=== PATIENT | female | born 1990 | race Caucasian/White ===

== ENCOUNTER → 2016-05-27 | Outpatient (CLI) | payer BC ==
[~2016-05-27] MED LIST: ACET-749 PO; MTR600X PO; PRENTAB26 PO
--- NOTE | 2016-05-27 18:50 | DIAGNOSTIC IMAGING REPORT ---
THYROID ULTRASOUND CLINICAL HISTORY: Multinodular thyroid. Cervical pain. COMPARISON STUDY: Thyroid ultrasounds November 18, 2015 and December 28, 2015. TECHNIQUE: Sonography of the thyroid gland was performed. FINDINGS: The right thyroid lobe measures 4.4 x 1.2 x 1.6 cm and the left lobe measures 4.7 x 1.3 x 1.8 cm. Several cystic lesions within the thyroid gland which contain echogenic foci with comet tail artifact are unchanged since exam of November 18, 2015. The largest is a 9 mm lesion within the lower pole of the left lobe. These are consistent with colloid cysts. IMPRESSION: 1. Normal size thyroid gland. 2. No change in multiple cystic lesions within the thyroid gland since prior exams which are consistent with colloid cysts. Electronically signed by: Dorian Villareal M.D. 05/27/2016 6:48 PM Dictated Date/Time: 05/27/2016 6:46 PM
== END | disposition home or self-care (01) ==
LOC: C.ULTR 17:02
PROVIDERS: ATTEND Internal Medicine Endocrinology, Diabetes & Metabolism
DX: M54.2 Cervicalgia (principal); E04.2 Nontoxic multinodular goiter

== ENCOUNTER → 2016-11-11 | Outpatient (CLI) | payer BC | END | disposition home or self-care (01) | LOC: C.PAPS 14:03 | PROVIDERS: ATTEND Physician Assistant | DX: Z01.419 Encounter for gynecological examination (general) (routine) without abnormal findings (principal) ==

== ENCOUNTER → 2017-05-16 | Outpatient (CLI) | payer BC | END | disposition home or self-care (01) | LOC: C.LABPBG 15:25 | PROVIDERS: ATTEND Physician Assistant | DX: N93.9 Abnormal uterine and vaginal bleeding, unspecified (principal) ==

== ENCOUNTER 2017-09-28 12:56 | Emergency (ER) | payer BC ==
[~2017-09-28] VITALS: Ht 152.4 cm; Wt 60.9 kg
[~2017-09-28 12:56] MED LIST changes: -ACET-749 PO; +ACET300T3 PO
[2017-09-28 13:02] VITALS: TEMP 36.9; Ht 152.4 cm; Wt 60.9 kg
[2017-09-28] MEDS ORDERED: NORG1TAB68 PO (13:11)
--- NOTE | 2017-09-28 14:11 | DIAGNOSTIC IMAGING REPORT ---
MAXILLOFACIAL CT WITHOUT CONTRAST CLINICAL HISTORY: Left temporomandibular joint pain. Bilateral temporomandibular joint dislocations. Recent trauma. COMPARISON STUDY: None. TECHNIQUE: A maxillofacial CT was performed without IV contrast. Coronal and sagittal reformats were viewed. A dose lowering technique was utilized adhering to the principles of ALARA. FINDINGS: Visualized portions of the intracranial contents are unremarkable on this unenhanced exam. There is no upper cervical spine fracture. There is no skull base fracture. No mandibular fracture is identified. Alignment of the bilateral temporomandibular joints is anatomic. Moderate leftward deviation of the nasal septum is noted. Small air-fluid levels within the sphenoid sinuses are noted. There is no acute facial fracture. The globes are intact. There is no retrobulbar hematoma. IMPRESSION: 1. No acute facial fracture. No mandibular fracture. Anatomic alignment of the temporomandibular joints. 2. Small sphenoid sinus air-fluid levels which suggests acute sinusitis. Electronically signed by: Dorian Villareal M.D. 09/28/2017 2:09 PM Dictated Date/Time: 09/28/2017 2:05 PM
[2017-09-28] MEDS ORDERED: CYCL10TA6 PO (14:23)
[2017-09-28] MEDS ORDERED: PRED20TA PO (14:23)
--- NOTE | 2017-09-28 14:26 | EMERGENCY ROOM VISIT NOTE ---
ED Visit Note First contact with patient: 13:06 CHIEF COMPLAINT: Jaw pain, headache HISTORY OF PRESENT ILLNESS: This 27-year-old female patient presents to the emergency department, ambulatory, complaining of jaw pain and intermittent headaches for the past 2 months. The patient states in July, she slipped while carrying groceries into her house. She fell face forward, striking her left jaw on a step. She states she has been evaluated twice by an oral surgeon , and has had x-rays performed. She denies any CT scans or other images. She states she was told that she may need an MRI to evaluate the joint more closely , but insurance did not approve the study. The patient has been intermittently taking meloxicam when pain is severe, but has not been experiencing significant relief. She had worsening pain last night, was unable to sleep due to the pain. She did take 1 dose of meloxicam at that time. She has not performed any physical therapy. She has not been on any muscle relaxers. She was told by the surgeon that there was nothing more they could do for her symptoms. REVIEW OF SYSTEMS: A 6 system review of systems was performed with positives and pertinent negatives listed in the history of present illness. All other systems were reviewed and are negative. ALLERGIES: None MEDICATIONS: Ortho Tri-Cyclen, meloxicam PMH: None SOCIAL HISTORY: The patient lives locally with family. She denies drug, alcohol , tobacco use. PHYSICAL EXAM: VITALS: Vitals are noted on the nurse's note and reviewed by myself. Vital signs stable. GENERAL: This is a 27-year-old white female, in no acute distress, nondiaphoretic, well-developed well-nourished. SKIN: The skin was without rashes, erythema, edema, or bruising. There is no tenting of the skin. No obvious swelling or facial swelling. Capillary reflex less than 2 seconds. HEAD: Normocephalic atraumatic. EARS: External auditory canals clear, tympanic membranes pearly gruber without erythema or effusion bilaterally. EYES: Pupils equal round and reactive to light and accommodation. Conjunctivae without injection, sclerae without icterus. Extraocular movements intact. NOSE: Patent, turbinates without inflammation or discharge. No sinus tenderness. MOUTH: Mucous membranes moist. Tonsils are not enlarged. Pharynx without erythema or exudate. Uvula midline. Airway patent. Tongue does not deviate. The patient is able to fully open and close her mouth. There is some TMJ discomfort. There is some popping and clicking in the joints bilaterally. There is no obvious mandibular deviation or dislocation. NECK: Supple without nuchal rigidity. No lymphadenopathy. No thyromegaly. Cervical spine is nontender. No JVD. MUSCULOSKELETAL: No muscle atrophy, erythema, or edema noted. Full range of motion without joint tenderness in all extremities. No tenderness to palpation. Normal gait. Strength 5/5 throughout. NEURO: Patient was alert and oriented to person place and time. Normal sensation to light and sharp touch. Deep tendon reflexes 2+ throughout. No focal neurological deficits. RADIOLOGY: MAXILLOFACIAL CT WITHOUT CONTRAST CLINICAL HISTORY: Left temporomandibular joint pain. Bilateral temporomandibular joint dislocations. Recent trauma. COMPARISON STUDY: None. TECHNIQUE: A maxillofacial CT was performed without IV contrast. Coronal and sagittal reformats were viewed. A dose lowering technique was utilized adhering to the principles of ALARA. FINDINGS: Visualized portions of the intracranial contents are unremarkable on this unenhanced exam. There is no upper cervical spine fracture. There is no skull base fracture. No mandibular fracture is identified. Alignment of the bilateral temporomandibular joints is anatomic. Moderate leftward deviation of the nasal septum is noted. Small air-fluid levels within the sphenoid sinuses are noted. There is no acute facial fracture. The globes are intact. There is no retrobulbar hematoma. IMPRESSION: 1. No acute facial fracture. No mandibular fracture. Anatomic alignment of the temporomandibular joints. 2. Small sphenoid sinus air-fluid levels which suggests acute sinusitis. Electronically signed by: Dorian Villareal M.D. 09/28/2017 2:09 PM Dictated Date/Time: 09/28/2017 2:05 PM EMERGENCY DEPARTMENT COURSE: The patient was seen and evaluated as above. CT scan was performed due to worsening pain and mobility of the joint. This was reviewed by myself and radiologist as above. I suspect TMJ syndrome as the cause of the patient's symptoms. I recommended Prednisone, muscle relaxers, ice , and physical therapy to help with her symptoms. The patient was agreeable. She was encouraged to follow-up with her PCP and consider a second opinion by another maxillofacial surgeon if symptoms do not improve. The patient verbalized understanding. All questions answered to the patient's satisfaction. Discharge instructions reviewed. The patient was discharged home in good condition. I attest that I have personally reviewed the patient's current medication list. Patient was found to have normal blood pressure on screening and does not require follow-up. Differential diagnosis includes dislocation, fracture, sprain, strain, soft tissue injury, TMJ syndrome, malignancy, and others DIAGNOSIS: TMJ syndrome The chart was completed utilizing [employer] voice recognition software. Grammatical errors, random word insertions, pronoun errors, and incomplete sentences are an occasional consequence of this system due to software limitations, ambient noise, and hardware issues. Any formal questions or concerns about the content, text, or information contained within the body of this dictation should be directly addressed to the provider for clarification. Problem List Medical Problems: (1) No significant active problems Status: Chronic Current/Historical Medications Scheduled Norgestimate-Ethinyl Estradiol (Ortho Tri-Cyclen), 1 TAB PO DAILY Prednisone (Prednisone), 0 PO DAILY Scheduled PRN Cyclobenzaprine Hcl (Flexeril), 10 MG PO TID PRN for Muscle Spasms Allergies Coded Allergies: No Known Allergies (Unverified , 08/13/15) Vital Signs Date Time Temp Pulse Resp B/P (MAP) Pulse Ox O2 Delivery O2 Flow Rate FiO2 09/28/17 13:02 36.9 99 18 124/77 97 Room Air Departure Information Impression Primary Impression: TMJ (temporomandibular joint disorder) Dispostion Home / Self-Care Condition GOOD Prescriptions Cyclobenzaprine Hcl (FLEXERIL) 10 Mg Tab 10 MG PO TID Y for Muscle Spasms, #15 TAB Prov: Marbella Rodriguez PA-C 09/28/17 Prednisone (Prednisone) 20 Mg Tab 0 PO DAILY, #18 TAB 3 DAILY FOR 3 DAYS, THEN 2 DAILY FOR 3 DAYS, THEN 1 DAILY FOR 3 DAYS. Prov: Marbella Rodriguez PA-C 09/28/17 Referrals Blaze Parra M.D. (PCP) Nader Godinez D.D.S. Patient Instructions ED TMJ Syndrome, [facility] Additional Instructions You were seen in the emergency department today for TMJ symptoms. I suspect a more chronic condition, possibly flared up by your injury several months ago. You have been prescribed Prednisone. This is a steroid which will help decrease your inflammation and should help with pain. Take this medicine as prescribed. Take the ENTIRE 9 day course. It is best to take steroids early in the morning as PM dosing can affect your sleeping patterns. No NSAIDs while on Prednisone. Ibuprofen(Motrin, Advil) may be used for fever or pain. Use 600mg every six hours as needed. Take with food. Avoid using more than 2400mg in a 24 hour period. Do not use 2400mg per day for more than three consecutive days without physician direction. Prolonged inappropriate use can lead to stomach upset or ulcers. Do not take this medication while on Prednisone. You may begin it after the course of Prednisone is completed. (AND/OR) Acetaminophen(Tylenol) may be used for fever or pain. Use 1000mg every six hours as needed. Avoid using more than 3000mg in a 24 hour period. You have been prescribed Flexeril (cyclobenzaprine) 1 tabs orally, up to three times per day. Do NOT exceed 30 mg (3 tabs) per day. Take your first dose at bedtime as it can make you drowsy. Always take all medications as prescribed. Follow-up with your PCP within 2-3 days to discuss the worsening symptoms. As discussed, I do recommend you consider Physical Therapy, as this is often beneficial for your symptoms. If no improvement with PT, consider seeking a second opinion from a different Maxillofacial surgeon. You have been provided with the contact information for a local surgeon. Return to the emergency department for worsening symptoms or further concerns.
[2017-09-28 14:31] VITALS: BP 136/79; PULSE 77; O2SAT 100
== END 2017-09-28 14:32 | disposition home or self-care (01) ==
LOC: C.EDB 12:59 → C.EDD 14:32
DX: M26.609 Unspecified temporomandibular joint disorder, unspecified side (principal)

== ENCOUNTER → 2017-12-09 | Outpatient (CLI) | payer BC ==
[~2017-12-09] MED LIST changes: -ACET300T3 PO; -MTR600X PO; +NORG1TAB68 PO; +PRED20TA PO; -PRENTAB26 PO
== END | disposition home or self-care (01) ==
LOC: C.LABSPEC 14:07
PROVIDERS: ATTEND Obstetrics & Gynecology
DX: Z11.3 Encounter for screening for infections with a predominantly sexual mode of transmission (principal)

== ENCOUNTER 2020-03-27 03:37 | Inpatient (IN) ==
[2020-03-27] MEDS ORDERED: LACTATED RINGER'S 1,000 ML IV PRN (04:22)
[2020-03-27] MEDS ORDERED: PENICILLIN G POTASSIUM 6 MU in DEXTROSE 5% 250 ML IV STA (04:22)
[2020-03-27] MEDS ORDERED: PENICILLIN G POTASSIUM 3 MU in DEXTROSE 5% 100 ML IV PRN (04:22)
[2020-03-27] MEDS ORDERED: OXYTOCIN 30 UNITS/500 ML BAG IV PRN ×3 (04:22→12:27)
[2020-03-27 04:54] LABS: Hematocrit (blood only) 36.9 % (37-47); Hemoglobin 12.5 g/dL (12.0-16.0); Mean Corpuscular Hemoglobin 30.6 pg (25-34); Mean Corpuscular Hgb Conc 33.9 g/dL (32-36); Mean Corpuscular Volume 90.2 fL (80-100); Mean Platelet Volume 12.3 fL (7.4-10.4); Platelet Count 139 K/uL (130-400); RDW Coefficient of Variation 13.8 % (11.5-14.5); Red Blood Count 4.09 M/uL (4.2-5.4); White Blood Count 7.62 K/uL (4.8-10.8)
--- NOTE | 2020-03-27 06:57 | History & Physical Report ---
Date of Service March 27, 2020 Assessment & Plan (1) : Payton is a 39 y/o female currently at 39-1/7 WGA with an DANIEL 04/02/20 as determined by LMP who is here following LOF at home last night in the absence of contractions. Fetus cat I. She is GBS+. - SROM at home with subsequent contractions -- continue to monitor for now, trial ambulation. Consider labor augmentation if needed at 6hr lucie. - Anticipate - GBS+ : intrapartum PCN - Pain control: Type/Screen: B+ / Ig- COVD-19 Test: negative (03/22) Admission and Anticipated Discharge Date Admission Date: March 27, 2020 History of Present Illness Primary Care Provider: Blaze Cain is a 39 y/o female currently at 39-1/7 WGA with an DANIEL 04/02/20 as determined by LMP who is here following LOF at home last night with irregular contractions. Her was complicated by GBS+ status alongside a h/o a multinodular thyroid, with TFTs and TSH at [facility] in 12/2019. Denied contractions at presentation; endorses good movement; endorses fluid loss; denies bloody show Had regular appointments with OB. Labs: (08/24/19) Blood type: B+ Antibody screen: negative H.5 (today) Hct: 36.9 (today) WBC: 7.62 (today) Plt: 139 (today) Rubella: immune VDRL/RPR: NR Gonorrhea: negative Chlamydia: negative HIV: negative HbSAg: negative GBS: positive Other screens: cff-DNA: Low risk (see scanned documents) CF: negative SMA: negative SARS-CoV-2 RT-PCR (COVID-19): negative (03/22) Allergies Allergy/AdvReac Type Severity Reaction Status Date / Time nickel Allergy Rash Verified 03/26/20 11:19 Home Medications Medication Instructions Recorded Confirmed Type prenat.vits,amber,rfi-yoyl-facui 1 tab PO DAILY 03/22/20 03/27/20 History [ Vitamin] Patient History Medical History Encounter for annual routine gynecological examination Encounter for anatomic survey Endometriosis Group beta Strep positive History of lipoma S/P EXCISION History of tachycardia WITH ; S/P UNREMARKABLE CARDIAC WORKUP FELT 2/2 ANXIETY Left knee pain Nonossifying fibroma Ovarian cyst Traumatic diastasis of pubic symphysis due to delivery Varicella vaccine Surgical History History of laparoscopy Hx of wisdom tooth extraction Family History Mother Thyroid disease Thyroid cancer Sister Thyroid disease Aunt Thyroid cancer Family/Other Thyroid cancer cancer Other FHx: leukemia Denies family history of Ovarian cancer Breast cancer Colorectal cancer Social History Smoking Status: Former smoker Tobacco Type: Cigarettes Age Started Using Tobacco: 18; Age Quit Using Tobacco: 23; Second Hand Exposure: Yes; Hx Alcohol Use: No Hx Substance Use: No Preferred Language: Tuvaluan Communication Ability: Effective Individual Pension Consultant Required: No Beliefs That Will Affect Care: None marital status: marital status details: Jeremy Coates (30) [phone] Current Living Situation: Spouse and Family Current Living Situation Comment: lives with spouse and children, 1 cat, 3 dogs, does not change litter current occupational status: employed current occupation: [employer] Other Information That Helps Us Care for You: No Feels Safe at Home: Yes Safety Concerns: Feels Safe At This Time Assistive Devices: Contacts and Glasses Review of Systems no fever, no chills and no sweats denies headache no dyspnea no chest pain, no dyspnea, no dyspnea at rest and no palpitations no dysuria no breast pain Physical Exam Physical Exam: General: Alert, oriented. No acute distress. Cardiac: Regular rate and rhythm, no murmurs/rubs/gallops. Respiratory: Clear to auscultation bilaterally a/p, no wheezes/rales/rhonchi. No increased work of breathing. Symmetrical chest rise. No respiratory distress. Pelvic: Dilation 3 cm; Effacement 90; Station -2 per Kirsten Holder RN at 0422hr 03/27 Lower Extremities: No lower extremity edema or swelling. No deep calf pain. Tobi's negative bilaterally Results & Data ([facility]) Vital Signs (Past 12 Hours) Vital Signs Temp Pulse Resp BP 03/27/20 03:59 36.6 C 77 18 101/62 03/27/20 03:56 36.6 C 77 18 101/62 Monitoring External Monitor Baseline: 135 Variability: 6-25 moderate Accelerations: 10x10 Decelerations: none Tocodynamometer Quality: mild irregular Supervising Physician Co-Signing Physician Notes Resident Physician Supervision Note: I interviewed and examined the patient. Discussed with Dr. Stokes and agree with findings and plan as documented in the note. Any exceptions or clarifications are listed here: 29yo @ 39 05/15, clear SROM at 1am. GBS+, started on PCN on arrival. Elected to ambulate to see if ctx picked up, but agreeable to start pitocin at the 6-hour lucie. Documented By: Elvira Calderon, Resident Activity Tracking Resident Involvement: Resident Care Provided Care Provided: Adult Hospital Medicine and OB Delivery
--- NOTE | 2020-03-27 09:08 | Communication Note ---
Date of Service: March 27, 2020 Taking over care of this patient. Pitocin just recently started for lack of contractions. fht 150s with min to mod variablity, variables noted with some contractions. Will continue to follow closely. Consider amnioinfusion if variables become problematic. Anticipate .
[2020-03-27] MEDS ORDERED: ePHEDrine sulfate 50 MG/ML AMP ONE (09:11)
[2020-03-27] MEDS ORDERED: BUPIVACAINE 0.25% 30 ML VIAL ONE (09:11)
[2020-03-27] MEDS ORDERED: SODIUM CHLORIDE 0.9% INJ 10 ML VIAL ONE (09:11)
[2020-03-27] MEDS ORDERED: fentaNYL citrate 100 MCG/2 ML VIAL ONE (09:12)
[2020-03-27] MEDS ORDERED: fentaNYL 2MCG/ML ROPIVACAINE 1.25MG/ML 100 ML BAG EPI ONE (09:12)
[2020-03-27] MEDS ORDERED: diphenhydrAMINE 50 MG/ML VIAL IV PRN (09:16)
[2020-03-27] MEDS ORDERED: ePHEDrine sulfate 50 MG/ML AMP IV PRN (09:16)
[2020-03-27] MEDS ORDERED: fentaNYL 2MCG/ML ROPIVACAINE 1.25MG/ML 100 ML BAG EPI PRN (09:16)
[2020-03-27] MEDS ORDERED: PROMETHAZINE HCL 25 MG in SODIUM CHLORIDE 0.9% 50 ML IV PRN (09:16)
[2020-03-27] MEDS ORDERED: NALOXONE HCL 0.4 MG/1 ML VIAL/CARP IV PRN (09:16)
[2020-03-27] MEDS ORDERED: NALOXONE HCL 1 MG in SODIUM CHLORIDE 0.9% 1000ML 1,000 ML IV PRN (09:16)
[2020-03-27] MEDS ORDERED: ONDANSETRON INJ 2 MG/ML 2 ML VIAL IV PRN (09:16)
--- NOTE | 2020-03-27 09:16 | Anesthesiology Consultation ---
Date of Service March 27, 2020 Assessment & Plan ASA ASA2 Proposed Anesthesia Anesthesia Type: Labor Epidural Risk / Benefits Reviewed With: PT / POA / Parent / Guardian, Accepts Plan and Informed Consent Obtained History Height/Weight Height: 5 ft Weight: 72.121 kg Allergies Allergy/AdvReac Type Severity Reaction Status Date / Time nickel Allergy Rash Verified 03/26/20 11:19 Medications Home Medications Medication Instructions Recorded Confirmed Last Taken prenat.vits,amber,qmt-sway-uepig 1 tab PO DAILY 03/22/20 03/27/20 03/26/20 [ Vitamin] Active Medications Generic Name Dose Route Start Last Admin Trade Name Freq PRN Reason Stop Dose Admin Lactated Ringer's 1,000 mls @ 125 mls/hr 03/27/20 04:22 03/27/20 09:30 Lr IV 03/29/20 04:21 125 mls/hr .Q8H PRN Infusion L&D Protocol Protocol Penicillin G Potassium 3 mu/ 106 mls @ 100 mls/hr 03/27/20 04:22 03/27/20 09:30 Dextrose IV 04/06/20 04:21 Infused Q4H PRN Titration Give until delivery Oxytocin 30 units in 500 mls @ 5 mls/hr 03/27/20 04:23 03/27/20 08:30 Pitocin IV 03/29/20 04:22 0.3 units/hr .Q24H PRN 5 mls/hr Labor Induction/Augmentation Titration Protocol 0.3 UNITS/HR Past Medical History Medical History Encounter for annual routine gynecological examination Encounter for anatomic survey Endometriosis Group beta Strep positive History of lipoma S/P EXCISION History of tachycardia WITH ; S/P UNREMARKABLE CARDIAC WORKUP FELT 2/2 ANXIETY Left knee pain Nonossifying fibroma Ovarian cyst Traumatic diastasis of pubic symphysis due to delivery Varicella vaccine Exercise / Class Metabolic Activity II 4-5 Yardwork/Stairs/Walk up hill Past Family History Family History Mother Thyroid disease Thyroid cancer Sister Thyroid disease Aunt Thyroid cancer Family/Other Thyroid cancer cancer Other FHx: leukemia Denies family history of Ovarian cancer Breast cancer Colorectal cancer Past Surgical History Surgical History History of laparoscopy Hx of wisdom tooth extraction Past Anesthesia History No Hx of Anesthesia Complications and No Family Hx of Anesthesia Complications History of PONV No Hx of PONV and No Hx of Motion Sickness Social History Smoking Status: Former smoker Hx Alcohol Use: No Hx Substance Use: No Review of Systems denies fever/cough/ colds/ chest pain/ SOB/ ELIZABETH denies ELIZABETH Physical Exam Vital Signs Last Vital Signs Temp 36.6 C 03/27/20 09:00 Pulse 125 H 03/27/20 09:44 Resp 18 03/27/20 09:38 BP 90/55 L 03/27/20 09:44 Pulse Ox 98 03/27/20 09:40 ENMT Mouth: no TMJ abnormality and no dentition abnormality Thyromental Distance: > or= 3.5 Finger Breadths Mallampati Class: II Neck neck extension not limited Respiratory normal respiratory effort; no respiratory distress Auscultation: lungs clear to auscultation bilaterally Cardiovascular Rate/Rhythm: regular rate and regular rhythm Neurologic moves all extremities Psychiatric Orientation: alert and oriented x 3 Testing Laboratory Results 03/27/20 04:33
--- NOTE | 2020-03-27 10:30 | Obstetrical Progress Note ---
Date of Service March 27, 2020 Assessment & Plan (1) SROM (spontaneous rupture of membranes): Admission and Anticipated Discharge Date Admission Date: March 27, 2020 making progress, variables resolved. continue current management. anticipate . Subjective comfortable after epidural Review of Systems Review of Systems: All systems reviewed & are unremarkable except as noted in HPI & below Physical Exam Constitutional: WD/WN, vitals as above Psychiatric: A+Ox3, euthymic affect Genitourinary: cx--5/100/0 toco--q2-4min, pit at 5 efm--140s with min to mod variability, no further decls noted. Results & Data ([facility]) Vital Signs (Past 12 Hours) Vital Signs Temp Pulse Resp BP Pulse Ox 03/27/20 10:25 90 96 03/27/20 10:20 86 96 03/27/20 10:18 85 105/66 03/27/20 10:15 84 95 03/27/20 10:14 90 102/58 L 03/27/20 10:10 109 H 107/59 L 94 03/27/20 10:05 84 96 03/27/20 10:04 92 H 108/61 03/27/20 10:00 110 H 20 96 03/27/20 09:59 96 H 106/57 L 03/27/20 09:55 93 H 97 03/27/20 09:52 86 101/59 L 03/27/20 09:50 93 H 111/59 L 94 03/27/20 09:48 131 H 94/51 L 03/27/20 09:46 116 H 20 105/55 L 03/27/20 09:45 96 H 96 03/27/20 09:44 125 H 90/55 L 03/27/20 09:42 105/66 03/27/20 09:40 91 H 103/64 98 03/27/20 09:38 92 H 18 106/67 03/27/20 09:35 86 96 03/27/20 09:30 87 100 03/27/20 09:25 82 100 03/27/20 09:20 82 98 03/27/20 09:15 78 95 03/27/20 09:14 92 H 94 03/27/20 09:10 76 100 03/27/20 09:02 85 107/55 L 11/19/20 09:00 36.6 C 20 11/19/20 07:59 85 88/50 L 03/27/20 07:07 36.6 C 84 20 102/61 03/27/20 06:00 36.4 C L 03/27/20 03:59 36.6 C 77 18 101/62 03/27/20 03:56 36.6 C 77 18 /62 PG Care Time/CCT Total # of Minutes Spent Total Time Spent with Patient: Total time spent is greater than 50% in coordination of care (as documented) at patient's floor/unit and/or counseling patient: Coding Level of Care Code None Diagnoses SROM (spontaneous rupture of membranes)
[2020-03-27] MEDS ORDERED: oxyCODONE/ACETAMINOPHEN 5mg/325mg TAB PO PRN (12:14)
--- NOTE | 2020-03-27 12:17 | Delivery Summary ---
Vaginal Delivery Summary Date of Service March 27, 2020 Vaginal Delivery Summary Pre-operative Diagnosis: at term srom Post-operative Diagnosis: same Procedure: pitocin augmentation epidural periclitoral repair EBL: 300cc Anesthesia: epidural Procedure: The patient pushed for one contraction to deliver a viable female in doa position. The nose and mouth were bulb suctioned on the perineum and the rest of the was then delivered without difficulty. The baby was vigorous. The nose and mouth were again bulb suctioned and the was placed in the maternal abdomen for drying and attention. Cord was clamped and cut at one minute of life. Cord blood and segment obtained. Placenta delivered spontaneous, intact with a three vessel cord. Cervix/sulci/rectum were intact. A periclitoral tear laceration was repaired in the normal standard fashion. Hemostasis obtained with dilute pitocin and fundal massage. Apgars were 8/9. Mother and baby doing well at the end of the delivery.
[2020-03-27] MEDS ORDERED: DIPHTHERIA/TETANUS/PERTUSSIS 0.5 ML SYR/VIAL IM ONE (12:27)
[2020-03-27] MEDS ORDERED: HYDROCORTISONE ACETATE 25 MG SUPP PR PRN (12:27)
[2020-03-27] MEDS ORDERED: BENZOCAINE 20% AER SPR 82.5 GM CAN EXT PRN (12:27)
[2020-03-27] MEDS ORDERED: SUPERCREAM 0.870% 15 GM JAR EXT PRN (12:27)
--- NOTE | 2020-03-27 12:54 | Anesthesiology Progress Note ---
Date of Service March 27, 2020 Anesthesia Post Procedure Vital Signs Vital Signs: Temp Pulse Resp BP Pulse Ox 03/27/20 12:45 75 93 03/27/20 12:40 81 18 93 03/27/20 12:39 88 100/56 L 03/27/20 12:35 81 93 03/27/20 12:30 77 94 03/27/20 12:25 83 20 94 03/27/20 12:24 79 101/55 L 03/27/20 12:20 86 94 03/27/20 12:15 89 95 03/27/20 12:10 79 20 102/53 L 95 03/27/20 12:05 78 94 03/27/20 12:00 87 94 03/27/20 11:55 87 98 03/27/20 11:50 84 96 03/27/20 11:48 91 H 96/64 L 03/27/20 11:45 77 94 03/27/20 11:40 84 93 03/27/20 11:35 88 93 03/27/20 11:34 84 93/54 L 03/27/20 11:30 89 20 93 03/27/20 11:25 83 93 03/27/20 11:20 83 93 03/27/20 11:19 80 89/51 L 03/27/20 11:15 80 94 03/27/20 11:10 74 93 03/27/20 11:05 82 93 03/27/20 11:04 80 95/54 L 03/27/20 11:00 36.6 C 69 20 95 03/27/20 10:55 84 94 03/27/20 10:50 87 94 03/27/20 10:48 82 99/56 L 03/27/20 10:45 81 93 03/27/20 10:40 83 94 03/27/20 10:35 77 94 03/27/20 10:34 80 100/57 L 03/27/20 10:30 81 20 94 03/27/20 10:25 90 96 03/27/20 10:20 86 96 03/27/20 10:18 85 105/66 03/27/20 10:15 84 95 03/27/20 10:14 90 102/58 L 03/27/20 10:10 109 H 107/59 L 94 03/27/20 10:05 84 96 03/27/20 10:04 92 H 108/61 03/27/20 10:00 110 H 20 96 03/27/20 09:59 96 H 106/57 L 03/27/20 09:55 93 H 97 03/27/20 09:52 86 101/59 L 03/27/20 09:50 93 H 111/59 L 94 03/27/20 09:48 131 H 94/51 L 03/27/20 09:46 116 H 20 105/55 L 03/27/20 09:45 96 H 96 03/27/20 09:44 125 H 90/55 L 03/27/20 09:42 105/66 03/27/20 09:40 91 H 103/64 98 03/27/20 09:38 92 H 18 106/67 03/27/20 09:35 86 96 03/27/20 09:30 87 100 03/27/20 09:25 82 100 03/27/20 09:20 82 98 03/27/20 09:15 78 95 03/27/20 09:14 92 H 94 03/27/20 09:10 76 100 03/27/20 09:02 85 107/55 L 03/27/20 09:00 36.6 C 20 03/27/20 07:59 85 88/50 L 03/27/20 07:07 36.6 C 84 20 102/61 03/27/20 06:00 36.4 C L 03/27/20 03:59 36.6 C 77 18 101/62 03/27/20 03:56 36.6 C 77 18 101/62 Pain Intensity Bilateral Abdomen: Pain Intensity: 0 Transfer of Care Handoff Completed per policy Notes Mental Status: alert / awake / arousable and participated in evaluation Patient Amnestic to Procedure: Yes Nausea / Vomiting: adequately controlled Pain: adequately controlled Airway Patency, RR, SpO2: stable & adequate BP & HR: stable & adequate Hydration State: stable & adequate Anesthetic Complications: no major complications apparent and Pt Satisfied with anesthetic care
[2020-03-27] MEDS: IBUPROFEN 600 MG TAB PO PRN ×2 (14:35→21:07)
[2020-03-27] MEDS: ACETAMINOPHEN 325 MG TAB PO PRN (21:07)
[2020-03-27] MEDS: DOCUSATE SODIUM 100 MG CAP PO SCH (22:05)
--- NOTE | 2020-03-28 05:24 | Obstetrical Progress Note ---
Date of Service <Jose Raul Stokes MD - Last Filed: 03/28/20 06:33> March 28, 2020 Assessment & Plan <Jose Raul Stokes MD - Last Filed: 03/28/20 06:33> (1) Spontaneous vaginal delivery: Payton is a 29 y/o female who is now PPD #1 following IOL in setting of poor progression of labor / inadequate contractions, with subsequent at 39-1/7 weeks - Feels well today. Eating well, voiding well, ambulating well. - Pain well controlled with ibuprofen 600mg Q4H PRN. - Routine PPD care -- continue OOB and ambulation throughout today - Patient desires to go home -- once cleared by peds after 24 hours and continued good progress, anticipate d/c - After discharge will have [address] Bar Shin <Jose Raul Stokes MD - Last Filed: 03/28/20 06:33> Payton is a 29 y/o female who is now PPD #1 following IOL in setting of poor progression of labor / inadequate contractions, with subsequent at 39-1/7 weeks. Reports feeling well overall this morning. Endorses minimal abdominal cramping & pain well managed on analgesics. Voiding without difficulty. Tolerating meals well and able to ambulate some. Some persistent lochia with some improvement this morning. Breast feeding without difficulty. Review of Systems Denies fever, chills, sweats Denies shortness of breath, difficulty breathing, chest pain, palpitations, chest pressure. Denies breast pain. Denies dysuria. Denies headache or changes in vision. Physical Exam <Jose Raul Stokes MD - Last Filed: 03/28/20 06:33> General: Alert, oriented. No acute distress. Cardiac: Regular rate and rhythm, no murmurs/rubs/gallops. Respiratory: Clear to auscultation bilaterally a/p, no wheezes/rales/rhonchi. No increased work of breathing. Symmetrical chest rise. No respiratory distress. Abdomen: Soft, nontender, nondistended. Bowel sounds present. Uterus: Uterine fundus firm, palpable 3 cm below umbilicus. Lower Extremities: No lower extremity edema or swelling. No deep calf pain. Tobi's negative bilaterally. Results & Data ([facility]) <Jose Raul Stokes MD - Last Filed: 03/28/20 06:33> Vital Signs (Past 12 Hours) Vital Signs Temp Pulse Resp BP Pulse Ox 03/28/20 04:15 36.7 C 85 18 91/54 L 95 03/28/20 00:00 36.8 C 98 H 18 98/61 L 98 03/27/20 20:00 37 C 90 18 102/59 L 99 <Divya Dinero MD, FACOG - Last Filed: 03/28/20 07:26> Co-Signing Physician Notes Resident Physician Supervision Note: I interviewed and examined the patient. Discussed with Dr. Stokes and agree with findings and plan as documented in the note. Any exceptions or clarifications are listed here: Doing well. Plan d/c later today if baby does ok. Instructions reviewed. Documented By: Divya Dinero MD, FACOG Resident Activity Tracking <Jose Raul Stokes MD - Last Filed: 03/28/20 06:33> Resident Involvement: Resident Care Provided Care Provided: Adult Hospital Medicine and OB Delivery
[2020-03-28] MEDS: IBUPROFEN 600 MG TAB PO PRN ×2 (06:12→12:44)
[2020-03-28] MEDS: DOCUSATE SODIUM 100 MG CAP PO SCH (06:13)
[2020-03-28 06:44] LABS: Hematocrit (blood only) 35.7 % (37-47); Hemoglobin 11.9 g/dL (12.0-16.0)
[2020-03-28] MEDS: ACETAMINOPHEN 325 MG TAB PO PRN (07:52)
[2020-03-28] MEDS ORDERED: PRENATAL VITAMIN 1 TAB PO SCH (08:00)
[2020-03-28] MEDS ORDERED: bisacodyL 5 MG TABEC PO SCH (20:00)
[2020-03-29] MEDS ORDERED: bisacodyL 10 MG SUPP PR PRN (06:00)
== END 2020-03-28 13:35 | disposition home or self-care (01) | DRG 768 ==
LOC: OPB 03:37 → 4S1 03:47 → 4S2 14:26